=== PATIENT | female | born 1955 | race Two or more races ===

== ENCOUNTER 2016-04-03 22:10 | Inpatient (IN) | payer OTHER ==
[~2016-04-03] VITALS: Ht 170.2 cm; Wt 86.2 kg
[2016-04-03] MEDS ORDERED: IV NS 0.9% 500 ML IV ONE (22:39)
[2016-04-03] MEDS ORDERED: IV SET PRIMARY 1 EA INFUS.SET MC ONE (22:39)
[2016-04-03] MEDS ORDERED: ONDANSETRON HCL/PF 4 MG/2 ML VIAL ONE (22:39)
[2016-04-03] MEDS ORDERED: IV NS 0.9% 500 ML BAG IV ONE (23:00)
[2016-04-03] MEDS ORDERED: ONDANSETRON HCL/PF 4 MG/2 ML VIAL IV ONE (23:00)
[2016-04-03 23:02] LABS: BASOPHILS % (AUTO) 0.2 % (0.0-2.0); DIFF TOTAL % 100 %; EOSINOPHILS % (AUTO) 0.3 % (0.0-6.0); HEMATOCRIT 42 % (33-45); HEMOGLOBIN 13.7 g/dL (11.5-14.8); LYMPHOCYTES # (AUTO) 1.2 /CMM (0.8-4.8); LYMPHOCYTES % (AUTO) 13.1 % (20.0-44.0); MEAN CORPUSCULAR HEMOGLOBIN 31 PG (26.0-33.0); MEAN CORPUSCULAR HGB CONC 33 g/dl (31.0-36.0); MEAN CORPUSCULAR VOLUME 93 fL (82-100); MONOCYTES # (AUTO) 0.3 /CMM (0.1-1.30); MONOCYTES % (AUTO) 2.9 % (2.0-12.0); NEUTROPHILS # (AUTO) 7.5 /CMM (1.8-8.9); NEUTROPHILS % (AUTO) 83.5 % (43.0-81.0); PLATELET COUNT (AUTO) 260 /CMM (150-450); RED BLOOD CELL COUNT(AUTO) 4.46 MIL/uL (4.0-5.2)
[2016-04-03 23:15] LABS: ANION GAP 22 (5-14); CALCIUM, SERUM 9.3 mg/dL (8.5-10.1); CARBON DIOXIDE 20 mmol/L (21-32); CHLORIDE 103 mmol/L (98-107); CREATININE 0.8 mg/dL (0.6-1.3); GFR 74 mL/min (>60); GLUCOSE 109 mg/dL (74-106); INR 0.94 (0.87-1.13); POTASSIUM 3.2 mmol/L (3.5-5.1); PROTHROMBIN TIME 10.1 SECS (9.5-12.7); SODIUM SERUM 142 mmol/L (136-145); UREA NITROGEN, BLOOD 11 mg/dL (7-18)
[2016-04-03 23:20] LABS: ALANINE AMINOTRANSFERASE 28 U/L (12-78); ALBUMIN 4.1 g/dL (3.4-5.0); ASPARTATE AMINOTRANSFERASE 16 U/L (15-37); BILIRUBIN,DIRECT 0.1 mg/dL (0.0-0.2); BILIRUBIN,TOTAL 0.6 mg/dL (0.2-1.0); INDIRECT BILIRUBIN 0.5 mg/dL (0.0-1.1); TOTAL PROTEIN, SERUM 7.3 g/dL (6.4-8.2)
[2016-04-03 23:21] LABS: TROPONIN I < 0.017 ng/mL (0.00-0.056)
[2016-04-04] MEDS ORDERED: ASPIRIN 81 MG TAB.CHEW ONE (00:25)
[2016-04-04] MEDS ORDERED: ASPIRIN 325 MG TABLET PO ONE (00:30)
[2016-04-04] MEDS ORDERED: ONDANSETRON HCL/PF 4 MG/2 ML VIAL ONE (01:18)
[2016-04-04] MEDS ORDERED: ONDANSETRON HCL/PF 4 MG/2 ML VIAL IV ONE (01:30)
[2016-04-04 02:25] VITALS: BP 117/67
[2016-04-04] MEDS ORDERED: IV NS 0.9% 1,000 ML ONE (02:57)
[2016-04-04] MEDS ORDERED: IV SET PRIMARY PUMP SET 1 EA INFUS.SET MC ONE ×2 (02:57→04:26)
[2016-04-04] MEDS ORDERED: MAGNESIUM HYDROXIDE 30 ML UDC PO PRN (03:00)
[2016-04-04] MEDS ORDERED: ACETAMINOPHEN 325 MG TABLET PO PRN (03:00)
[2016-04-04] MEDS ORDERED: HYDROCODONE/APAP 5/325MG 1 EACH TABLET PO PRN (03:00)
[2016-04-04] MEDS ORDERED: Z GUARD REMEDY 2 OZ OINT TP PRN (03:00)
[2016-04-04] MEDS ORDERED: MAG HYDROX/AL HYDROX/SIMETH 30 ML UDC PO PRN (03:00)
[2016-04-04] MEDS: IV NS 0.9% 1,000 ML IV PRN ×2 (03:03→16:26)
[2016-04-04] MEDS ORDERED: ALPR0.25 PO (03:24)
[2016-04-04] MEDS ORDERED: THYR65TA6 PO (03:31)
[2016-04-04] MEDS ORDERED: POTASSIUM CL. PREMIX PERIPHER. 50 ML ONE (03:40)
[2016-04-04] MEDS ORDERED: SECONDARY IV SET 1 EA INFUS.SET MC ONE (03:44)
[2016-04-04] MEDS ORDERED: POTASSIUM CHLORIDE 10 MEQ/50 ML PREMIXED IVPB FOR PERIPHERAL LINE IV ONE (04:00)
[2016-04-04 06:34] LABS: BASOPHILS % (AUTO) 0.2 % (0.0-2.0); DIFF TOTAL % 100 %; EOSINOPHILS % (AUTO) 0.1 % (0.0-6.0); HEMATOCRIT 40 % (33-45); HEMOGLOBIN 13.5 g/dL (11.5-14.8); LYMPHOCYTES # (AUTO) 1.1 /CMM (0.8-4.8); LYMPHOCYTES % (AUTO) 10.7 % (20.0-44.0); MEAN CORPUSCULAR HEMOGLOBIN 32 PG (26.0-33.0); MEAN CORPUSCULAR HGB CONC 34 g/dl (31.0-36.0); MEAN CORPUSCULAR VOLUME 94 fL (82-100); MONOCYTES # (AUTO) 0.6 /CMM (0.1-1.30); NEUTROPHILS # (AUTO) 8.8 /CMM (1.8-8.9); PLATELET COUNT (AUTO) 250 /CMM (150-450); RED BLOOD CELL COUNT(AUTO) 4.28 MIL/uL (4.0-5.2); WHITE BLOOD COUNT (AUTO) 10.6 K/uL (4.3-11.0)
[2016-04-04 06:42] LABS: TROPONIN I < 0.017 ng/mL (0.00-0.056)
[2016-04-04 06:51] LABS: ALANINE AMINOTRANSFERASE 29 U/L (12-78); ALBUMIN 3.9 g/dL (3.4-5.0); ANION GAP 15 (5-14); ASPARTATE AMINOTRANSFERASE 15 U/L (15-37); BILIRUBIN,TOTAL 0.6 mg/dL (0.2-1.0); CALCIUM, SERUM 8.6 mg/dL (8.5-10.1); CARBON DIOXIDE 19 mmol/L (21-32); CHLORIDE 100 mmol/L (98-107); CREATININE 0.6 mg/dL (0.6-1.3); GFR 103 mL/min (>60); GLUCOSE 106 mg/dL (74-106); PHOSPHORUS 3.4 mg/dL (2.5-4.9); POTASSIUM 3.9 mmol/L (3.5-5.1); SODIUM SERUM 130 mmol/L (136-145); TOTAL PROTEIN, SERUM 7.1 g/dL (6.4-8.2); UREA NITROGEN, BLOOD 7 mg/dL (7-18)
[2016-04-04 06:59] LABS: CHOLESTEROL 195 mg/dL (<200); HDL CHOLESTEROL 77 mg/dL (40-60); LDL 100 mg/dL (0-99); THYROID STIMULATING HORMONE 0.997 uIU/mL (0.358-3.74); TRIGLYCERIDES 43 mg/dL (30-150)
[2016-04-04 07:03] VITALS: BP 135/69
[2016-04-04] MEDS: ONDANSETRON HCL/PF 4 MG/2 ML VIAL IVP PRN ×2 (07:27→16:29)
[2016-04-04 08:00] VITALS: BP 120/77
[2016-04-04] MEDS: PANTOPRAZOLE 40 MG VIAL IV SCH (10:09)
[2016-04-04 12:00] VITALS: BP 125/52
[2016-04-04 16:00] VITALS: BP 103/57
[2016-04-04 20:00] VITALS: BP 117/66
[2016-04-04] MEDS ORDERED: TEMAZEPAM 7.5 MG CAPSULE PO PRN (22:00)
[2016-04-05] VITALS: BP 108/69
[2016-04-05 04:00] VITALS: BP 111/74
[2016-04-05] MEDS: IV NS 0.9% 1,000 ML IV PRN (04:08)
[2016-04-05 08:00] VITALS: BP 104/60
[2016-04-05] MEDS: PANTOPRAZOLE 40 MG VIAL IV SCH (08:58)
== END 2016-04-05 13:59 | disposition home or self-care (01) | DRG 392 ==
LOC: ER 22:12 → TELE 04-04 02:08
PROVIDERS: ADMIT Contractor; ATTEND Internal Medicine
DX: A08.4 Viral intestinal infection, unspecified (principal); E87.1 Hypo-osmolality and hyponatremia; E03.9 Hypothyroidism, unspecified; R94.31 Abnormal electrocardiogram [ECG] [EKG]; Z85.3 Personal history of malignant neoplasm of breast; E86.0 Dehydration; K29.70 Gastritis, unspecified, without bleeding
CPT/HCPCS: 36415; 71010-TC; 74000-TC; 80048-TC; 80053-TC; 80061-TC; 80076-TC; 83605-TC; 83690-TC; 83735-TC; 84100-TC; 84443-TC; 84484-TC; 85025-TC; 85610-TC; 87081-TC; A4606; C9113; J2405; J3480; J7030; J7040; Z7610